=== PATIENT | male | born 1955 | race Caucasian/White ===

== ENCOUNTER 2019-05-31 14:41 | Observation (INO) | payer OTHER, SELFPAY ==
[2019-05-31 14:49] VITALS: BP 132/85; PULSE 112; RESP 16; O2SAT 94; BMI 36.2
--- NOTE | 2019-05-31 14:57 | ED_ITS ---
Entered by Shanthi Naranjo, acting as scribe for Tima White DO May 31, 2019 14:41 HPI - General Adult General: Chief complaint: General Medical Stated complaint: n/v, fall, confusion, lemus Time Seen by Provider: 05/31/19 14:57 Source: patient, family and RN notes reviewed Mode of arrival: ambulatory Limitations: no limitations History of Present Illness: HPI narrative: 63 yo male presents to ED with complaints of nausea, vomiting, coughing, nasal congestion and feeling lightheaded. He states this began 2-3 days ago. He was nauseated at first then t he other symptoms began. He cough has been a little productive. His spouse states the patient has fallen a couple of times and she had to help him get up to walk to a chair. She said the patient has been disoriented and was not speaking clearly. The patient states he is takes insulin and pills for his diabetes. He said within the past 10 years he has had Meniere's disease and has had surgical intervention. He has also had knee and back surgeries. MD complaint: nausea, vomiting, lightheaded, nasal and chest congestion Onset (ago): day(s) (2-3) Location: head and chest Radiation: non-radiation Severity: moderate Quality: aching Pain Consistency: constant Relieving factors: none Associated symptoms: Reports confusion, cough, fevers/chills, nausea, vomiting and weakness Treatments prior to arrival: none Review of Systems General: Reports: 10 or more systems reviewed and unremarkable except in HPI and below GI: Reports: nausea and vomiting Neuro: Reports: confusion PFSH ED PFSH: Social History Smoking and tobacco status: never smoked Physical Exam Const: COMMON NORMALS: no apparent distress, average body habitus, oriented x3, no limitations, healthy appearing, alert and well nourished HENMT: COMMON NORMALS: normocephalic, head/scalp atraumatic, hearing grossly normal bilaterally, external ears normal, EAC's normal, TM's normal bilaterally, external nose normal, nasal mucous membranes and turbinates normal, moist oral mucous membranes, oropharynx normal, dentition normal and gingiva normal HEAD & SCALP: normocephalic and atraumatic NOSE: external nose normal and nasal mucous membranes and turbinates normal EXTERNAL EAR: Yes external ears normal EXTERNAL AUDITORY CANAL: EAC's normal TYMPANIC MEMBRANE: TM's normal bilaterally Neck/C-Spine: COMMON NORMALS: no meningeal signs and no JVD Resp: COMMON NORMALS: normal respiratory effort, no retractions, no use of accessory muscles, clear to auscultation bilaterally and percussion normal AUSCULTATION: clear to auscultation bilaterally PERCUSSION: percussion normal Cardio: COMMON NORMALS: no JVD, regular rhythm, S1 normal heart sound, S2 normal heart sound, no gallops, no clicks, no murmurs, no rub and peripheral pulses 2+ throughout RATE: tachycardic RHYTHM: regular rhythm HEART SOUNDS: S1 normal and S2 normal PERIPHERAL PULSES: pulses 2+ throughout GI: COMMON NORMALS: normal to inspection, nondistended, normoactive bowel sounds, soft to palpation, non-tender, no hepatosplenomegaly, no masses and no bruits PALPATION: Yes soft and Yes no hepatosplenomegaly Neuro: COMMON NORMALS: oriented x3 SENSORIUM/ORIENTATION: Yes alert MENINGEAL SIGNS: Yes no meningeal signs Course Vital Signs: Vital signs: Vital Signs Pulse Rate 112 H 05/31/19 14:49 Respiratory Rate 16 05/31/19 14:49 Blood Pressure 132/85 05/31/19 14:49 Pulse Oximetry 94 05/31/19 14:49 [facility] - General Adult Lab Data: Labs: Lab Results 05/31/19 05/31/19 05/31/19 Range/Units 15:30 15:30 15:30 WBC 12.1 H (4.0-10.0) 10^3/ uL RBC 5.61 H (4.1-5.3) 10^6/u L Hgb 17.1 H (11.7-16.6) g/dL Hct 51.5 (42.0-52.0) % MCV 91.8 (80-94) fL MCH 30.5 (28.0-34.0) pg MCHC 33.2 (30.0-36.0) g/dL RDW 13.6 (12.1-15.1) % Plt Count 231 (130-400) 10^3/c mm MPV 10.2 (7.4-10.4) fL Neut % (Auto) 82.6 % Lymph % (Auto) 8.1 % [place] % (Auto) 8.1 % Eos % (Auto) 0.4 % Baso % (Auto) 0.4 % Neut # (Auto) 10.0 H (1.8-7.7) 10^3/u L Lymph # (Auto) 1.0 (0.8-4.8) 10^3/u L [place]amo # (Auto) 1.0 H (0.2-0.9) 10^3/u L Eos # (Auto) 0.1 (0.0-0.8) 10^3/u L Baso # (Auto) 0.1 (0.0-0.1) 10^3/u L Nucleated RBC % (a uto) 0 % Nucleated RBCs # 0.0 /100WBC Specimen Type Sample Site ABG pH (7.35-7.45) ABG pCO2 (35-45) mmHg ABG pO2 (80.0-100.0) mmH g ABG HCO3 (22-26) mmol/L ABG Base Excess (-2.0-2.0) mmol/ L Kaveh Test Hematocrit (42-52) % O2 Delivery Device FiO2 % Tie Loader ID Sodium 138 (136-145) mmol/L Potassium 3.6 (3.5-5.1) mmol/L Chloride 97 L (98-107) mmol/L Carbon Dioxide 24 (22-29) mmol/L Anion Gap 20.6 H (5-19) BUN 16 (8-23) mg/dL Creatinine 1.4 H (0.7-1.2) mg/dL GFR Calculation 51.0 L (90-130) mL/min Glucose 239 H (65-115) mg/dL Calculated Osmolal ity 290 (285-295) mOsm/k g Lactate 2.2 (0.5-2.2) mmol/L Calcium 9.6 (8.5-10.5) mg/dL Total Bilirubin 1.0 (0.15-1.2) mg/dL AST 23 (0-40) U/L ALT 25 (0-41) U/L Alkaline Phosphata se 73 (40-130) IU/L Total Protein 7.5 (6.6-8.7) g/dL Albumin 4.0 (3.5-5.2) g/dL Globulin 3.5 (1.3-4.6) g/dL Urine Color (Yellow) Urine Appearance (CLEAR) Urine pH (5-7) Ur Specific Gravit y (1.005-1.030) Urine Protein (Negative) Urine Glucose (UA) (Normal) Urine Ketones (Negative) Urine Blood (Negative) Urine Nitrate (Negative) Urine Bilirubin (NEGATIVE) Urine Urobilinogen (Negative) mg/dL Ur Leukocyte Constance ase (Negative) Influenza Type A A g (Negative) POC Influenza B Ag (Negative) 05/31/19 05/31/19 05/31/19 Range/Units 15:38 16:19 16:44 WBC (4.0-10.0) 10^3/ uL RBC (4.1-5.3) 10^6/u L Hgb (11.7-16.6) g/dL Hct (42.0-52.0) % MCV (80-94) fL MCH (28.0-34.0) pg MCHC (30.0-36.0) g/dL RDW (12.1-15.1) % Plt Count (130-400) 10^3/c mm MPV (7.4-10.4) fL Neut % (Auto) % Lymph % (Auto) % [place] % (Auto) % Eos % (Auto) % Baso % (Auto) % Neut # (Auto) (1.8-7.7) 10^3/u L Lymph # (Auto) (0.8-4.8) 10^3/u L [place] # (Auto) (0.2-0.9) 10^3/u L Eos # (Auto) (0.0-0.8) 10^3/u L Baso # (Auto) (0.0-0.1) 10^3/u L Nucleated RBC % (a uto) % Nucleated RBCs # /100WBC Specimen Type Arterial Sample Site Brachial, left ABG pH 7.49 H (7.35-7.45) ABG pCO2 36.3 (35-45) mmHg ABG pO2 58.5 L (80.0-100.0) mmH g ABG HCO3 27.5 H (22-26) mmol/L ABG Base Excess 4.1 H (-2.0-2.0) mmol/ L Kaveh Test N/a Hematocrit 50.1 (42-52) % O2 Delivery Device Room air FiO2 21.0 % Tie Loader ID glc Sodium (136-145) mmol/L Potassium (3.5-5.1) mmol/L Chloride (98-107) mmol/L Carbon Dioxide (22-29) mmol/L Anion Gap (5-19) BUN (8-23) mg/dL Creatinine (0.7-1.2) mg/dL GFR Calculation (90-130) mL/min Glucose (65-115) mg/dL Calculated Osmolal ity (285-295) mOsm/k g Lactate (0.5-2.2) mmol/L Calcium (8.5-10.5) mg/dL Total Bilirubin (0.15-1.2) mg/dL AST (0-40) U/L ALT (0-41) U/L Alkaline Phosphata se (40-130) IU/L Total Protein (6.6-8.7) g/dL Albumin (3.5-5.2) g/dL Globulin (1.3-4.6) g/dL Urine Color Yellow (Yellow) Urine Appearance Clear (CLEAR) Urine pH 5 (5-7) Ur Specific Gravit y 1.015 (1.005-1.030) Urine Protein Neg (Negative) Urine Glucose (UA) 4+ H (Normal) Urine Ketones 1+ H (Negative) Urine Blood Neg (Negative) Urine Nitrate Negative (Negative) Urine Bilirubin Neg (NEGATIVE) Urine Urobilinogen Norm (Negative) mg/dL Ur Leukocyte Constance ase Negative (Negative) Influenza Type A A g Negative (Negative) POC Influenza B Ag Negative (Negative) Imaging Data^: CXR: Radiologist's impression: [address] [address] XRay Report Signed Patient: Anh Rivas #: [id number] : 5Acct#:[id number] Age/Sex: 63 / MADM Date: 05/31/19 Loc: ERRoom/Bed: Attending Dr: Ordering Provider/Ordering MD: Tima White DO Date of Service: 05/31/19 Procedure(s): XR chest 1V portable [id number] Accession Number(s): [id number] Report Number: [id number] WS: [id number] Portable AP upright chest, 05/31/2019 Clinical Data: dyspnea Comparison: None. Findings: No nodules, masses or effusions are seen. The heart is normal. The pulmonary vascularity is not increased. No pneumonia or pneumothorax is seen. XR/XR chest 1V portable [id number] Impression: Negative chest. Dictated By:Missy Gonzalez MD Signed By:Missy Gonzalez MDSigned Date/Time:05/31/19 152 DD/ Discharge Plan Discharge Prescriptions: No Action amitriptyline 50 mg Tablet 50 mg PO BEDTIME RF: 0 Humulin R U-500 (Conc) Insulin 500 unit/mL Solution 100 unit SUBCUT BID RF: 0 alprazolam 0.5 mg Tablet 0.5 mg PO DAILY PRN (Reason: tinnitis) RF: 0 gabapentin 800 mg Tablet 800 mg PO TID RF: 0 metformin 1,000 mg Tablet 1,000 mg PO BID RF: 0 triamterene-hydrochlorothiazid 37.5-25 mg Tablet 1 tab PO DAILY RF: 0 omeprazole 20 mg Capsule,Delayed Release(Dr/Ec) 20 mg PO DAILY RF: 0 lisinopril 2.5 mg Tablet 2.5 mg PO DAILY RF: 0 Farxiga 10 mg Tablet 10 mg PO DAILY RF: 0 Ozempic 1 mg/dose (2 mg/1.5 mL) Pen Injector 1 mg SUBCUT Q7D RF: 0 Coding Level of Care Code ED Sap Bpc Developer for Chg Fwd Exam Detailed The documentation recorded by the Marcella chao Valerie R, accurately reflects the service I personally performed and the decisions made by Cindy wolfe Donald P, DO May 31, 2019 14:41
--- NOTE | 2019-05-31 14:59 | XR_ITS ---
WS: [id number] Portable AP upright chest, 05/31/2019 Clinical Data: dyspnea Comparison: None. Findings: No nodules, masses or effusions are seen. The heart is normal. The pulmonary vascularity is not increased. No pneumonia or pneumothorax is seen. XR/XR chest 1V portable [id number] Impression: Negative chest.
[2019-05-31] MEDS: sodium chloride 0.9% 500 ML IV (15:30)
[2019-05-31 15:44] LABS: Basophils # 0.1 10^3/uL (0.0-0.1); Basophils % 0.4 %; Eosinophils # 0.1 10^3/uL (0.0-0.8); Eosinophils % 0.4 %; Hematocrit 51.5 % (42.0-52.0); Hemoglobin 17.1 g/dL (11.7-16.6); Lymphocytes % 8.1 %; Mean Corpuscular HGB Conc 33.2 g/dL (30.0-36.0); Mean Corpuscular Hemoglobin 30.5 pg (28.0-34.0); Mean Corpuscular Volume 91.8 fL (80-94); Mean Platelet Volume 10.2 fL (7.4-10.4); Monocytes % 8.1 %; Neutrophils % 82.6 %; Nucleated Red Blood Cells % 0 %; Platelet Count 231 10^3/cmm (130-400); Red Blood Count 5.61 10^6/uL (4.1-5.3); Red Cell Distribution Width 13.6 % (12.1-15.1); White Blood Count 12.1 10^3/uL (4.0-10.0)
[2019-05-31 15:56] LABS: Alanine Aminotransferase 25 U/L (0-41); Alkaline Phosphatase 73 IU/L (40-130); Anion Gap 20.6 (5-19); Aspartate Amino Transferase 23 U/L (0-40); Blood Urea Nitrogen 16 mg/dL (8-23); Calcium 9.6 mg/dL (8.5-10.5); Carbon Dioxide 24 mmol/L (22-29); Chloride 97 mmol/L (98-107); Globulin 3.5 g/dL (1.3-4.6); Glucose 239 mg/dL (65-115); Osmolality Calculated 290 mOsm/kg (285-295); Potassium 3.6 mmol/L (3.5-5.1); Sodium 138 mmol/L (136-145); Total Protein 7.5 g/dL (6.6-8.7)
[2019-05-31 15:57] LABS: Lactate (Lactic Acid level) 2.2 mmol/L (0.5-2.2)
[2019-05-31 16:04] LABS: Add Urine Microscopic? NO
[2019-05-31 16:08] LABS: Protein Urine Neg (Negative); Specific Gravity, Urine 1.015 (1.005-1.030); Urine Appearance Clear (CLEAR); Urine Color Yellow (Yellow); pH Urine 5 (5-7)
[2019-05-31 16:09] LABS: Bilirubin Urine Neg (NEGATIVE); Blood Urine Neg (Negative); Glucose Urine UA 4+ (Normal); Ketones Urine 1+ (Negative); Leukocyte Esterase Urine Negative (Negative); Nitrate Urine Negative (Negative); Urobilinogen Urine Norm (Negative)
[2019-05-31 16:51] LABS: Influenza A by IFA Negative (Negative); Influenza B by IFA Negative (Negative)
[2019-05-31 16:54] LABS: ABG PCO2 36.3 mmHg (35-45); ABG PH Result 7.49 (7.35-7.45); Arterial Blood Gas Hematocrit 50.1 % (42-52); Base Excess ABG 4.1 mmol/L (-2.0-2.0); Blood Gas Operator Identificat glc; Blood Gas Sample Site Brachial, left; Blood Gas Sample Type Arterial; HCO3 ABG 27.5 mmol/L (22-26); Oxygen Device ROOM AIR; PO2 ABG 58.5 mmHg (80.0-100.0)
[2019-05-31] MEDS: cefTRIAXone 1,000 MG in sodium chloride 0.9% (plus) 50 ML 100 MG IV (17:47)
[2019-05-31] MEDS: oseltamivir phosphate 75 mg Capsule PO (17:51)
[2019-05-31] MEDS: ondansetron 2 mg/ML SDV 2 mL 4 MG IVP (18:33)
[2019-05-31 18:43] VITALS: BP 124/75; PULSE 112; RESP 16; O2SAT 98
--- NOTE | 2019-05-31 18:55 | CTR_ITS ---
PROCEDURE INFORMATION: Exam: CT Head Without Contrast Exam date and time: 05/31/2019 9:10 PM Age: 63 years old Clinical indication: Pain; Altered mental status/memory loss and dizziness; Headache; Patient HX: Fall yesterday; Additional info: Headache, vertigo TECHNIQUE: Imaging protocol: Computed tomography of the head without contrast. Total DLP: 870.38 mGy-cm Radiation optimization: All CT scans at this facility use at least one of these dose optimization techniques: automated exposure control; mA and/or kV adjustment per patient size (includes targeted exams where dose is matched to clinical indication); or iterative reconstruction. COMPARISON: No relevant prior studies available. FINDINGS: Brain: Normal. No hemorrhage. Unremarkable white matter. No mass effect. Ventricles: Normal. No ventriculomegaly. Bones/joints: Unremarkable. No acute fracture. Sinuses: Visualized sinuses are unremarkable. No fluid levels. Mastoid air cells: Visualized mastoid air cells are well aerated. Soft tissues: Unremarkable. CT/CT head wo con* [id number] IMPRESSION: No acute intracranial abnormality. Radiation Dose CTDIVOL = (mGy): DLP = 870.38 (mGy-cm)
[2019-05-31 19:05] VITALS: BP 128/76; PULSE 100; RESP 18; TEMP 37.2; O2SAT 94
--- NOTE | 2019-05-31 19:05 | PC.NURSE ---
Patient arrived to room 266 from the ER. Patient is A&Ox3. Respirations even and non-labored on room air. Patient states, I am hungry I asked the whole time I was in the ER but they never gave me anything to eat. It was probably because when I first got there I vomited. I feel better now though. Patient's took patient's belongings home with her. Bed alarm place on at this time as patient's went home.
--- NOTE | 2019-05-31 19:31 | P.HP_ITS ---
Providers/Chief Complaint Admitting Physician: Brock Dsouza Primary Care Provider: Ghanshyam Suarez DO Chief Complaint: n/v, fall, confusion, lemus History of Present Illness Byron Rivas is a 63 year old male with history of meniere's disease with history of severe vertigo diagnosed 10 years ago which improved with medical therapy, although recently over past several weeks has been getting more frequent episodes (his is under the impression that his low dose lisinopril is the treatment for it and not for blood pressure), diabetes, GERD, neuropathy for which he takes amitriptyline, gabapentin, he also takes intermittent ibuprofen, was brought in for evaluation by his family as he got significantly worse in the last several days, with more episodes of vertigo, with nausea, vomiting, but also cough, nonproductive, nasal congestion, mild headache today, as well as this morning he has had more difficulty ambulating, falling over 3 times at home. This morning also his noted that he had an episode where he was not making sense when he was trying to speak with her, saying bring it over for me and spit it out , and she was not sure what he was talking about without any relation to the context. Today he is also noted with fever reported as 100.8 in ER, although I do not see it recorded. Here he is found with flushed appearance, leukocytosis 12.1, tachycardia heart rate 112, nausea, currently without vertigo, mild headache, no photosensitivity or neck stiffness, with general malaise. Rapid flu was checked and was negative. Chest x-ray was assessed without finding of pneumonia. UA unremarkable. He does have acute kidney injury with creatinine of 1.4. He has continuously been taking all his medications at the same dose. His lactic acid is 2.2. Anion gap is 20.6 but with normal, carbon dioxide of 24. +1 ketones in the urine, but no acidosis on ABG. Hypoxemia 58.5, although he is saturating 97% on room air. There are no signs of confusion currently. He is awake and alert, keenly responsive, and provides his own history, although is hard of hearing, especially in the left ear. He has an episode of vomiting during the visit, however, denies abdominal pain, and had a normal bowel movement earlier today. He and his family also noticed occasional jerking movements of his arms and sometimes head. He reports that he has been having some trouble using a spoon due to this. This is not currently present. He denies any earache, denies any tinnitus. He denies any numbness or weakness anywhere else. Denies any past history of stroke. He denies any recent travel or sick contacts. He has not had a flu vaccine this year. Review of Systems Const: Reports: fever and malaise Eyes: Denies: change in vision or eye redness ENMT: Reports: disequilibrium and nasal congestion; Denies: throat pain, oral sores/lesions, ear pain, ear discharge, change in hearing or tinnitus Card: Denies: chest pain, edema, pre-syncope or shortness of breath on exertion Resp: Reports: non-productive cough; Denies: shortness of breath, productive cough, change in phlegm color or c oughing up blood GI: Reports: nausea and vomiting; Denies: abdominal pain, diarrhea, constipation, blood in stool or black tarry stool : Denies: flank pain, difficulty urinating, urinary frequency or blood in urine Musc: Denies: back pain, joint swelling or redness Skin/Breast: Denies: rash, sores or new lesion Neuro: Reports: headache, dizziness and confusion (temporary this morning); Denies: numbness in extremities, weakness in extremities or seizure-like activity Endo: Denies: excessive urination or excessive thirst Franko/Lymph: Denies: easy bleeding or purpura All/Imm: Denies: hives, throat swelling or tongue swelling Medications/Allergies Home Medications Medication Instructions Recorded Confirmed Last Taken Type alprazolam 0.5 mg PO DAILY PRN 05/31/19 05/31/19 05/31/19 History amitriptyline 50 mg PO BEDTIME 05/31/19 05/31/19 05/30/19 History dapagliflozin [Farxiga] 10 mg PO DAILY 05/31/19 05/31/19 05/31/19 History gabapentin 800 mg PO TID 05/31/19 05/31/19 05/31/19 History insulin regular hum U-500 conc 100 unit SUBCUT BID 05/31/19 05/31/19 05/31/19 History [Humulin R U-500 (Conc) Insulin] lisinopril 2.5 mg PO DAILY 05/31/19 05/31/19 05/31/19 History metformin 1,000 mg PO BID 05/31/19 05/31/19 05/31/19 History omeprazole 20 mg PO DAILY 05/31/19 05/31/19 05/31/19 History semaglutide [Ozempic] 1 mg SUBCUT Q7D 05/31/19 05/31/19 05/28/19 History triamterene-hydrochlorothiazid 1 tab PO DAILY 05/31/19 05/31/19 05/31/19 History Allergies Allergy/AdvReac Type Severity Reaction Status Date / Time No Known Allergies Allergy Verified 05/31/19 14:55 PFSH Acute PFSH: Medical History (Updated 05/31/19 @ 20:52 by Brock Dsouza MD) DM type 2 (diabetes mellitus, type 2) GERD (gastroesophageal reflux disease) Meniere disease Neuropathic pain Surgical History H/O elbow surgery H/O knee surgery H/O wrist surgery Hx of cataract surgery Previous back surgery Family History Father Colon cancer Mother Colon cancer Other Cancer Social History Smoking and tobacco status: never smoked Alcohol intake: never Substance/Drug Use: never Marital status: Current 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 Vitals/I&O/Wt Last Vital Signs Pulse 112 H 05/31/19 18:43 Resp 16 05/31/19 18:43 BP 124/75 05/31/19 18:43 Pulse Ox 98 05/31/19 18:43 Weight last 48 hrs Weight 117.934 kg Physical Exam Const: COMMON NORMALS: no apparent distress and oriented x3 EXAM LIMITATIONS: no altered mental status GENERAL APPEARANCE: cooperative OTHER: Face flushed HENMT: COMMON NORMALS: oropharynx normal EXTERNAL AUDITORY CANAL: EAC's normal TYMPANIC MEMBRANE: TM's normal bilaterally Eye: OTHER: Mild scleral erythema bilaterally Neck/C-Spine: COMMON NORMALS: no JVD OTHER: No neck stiffness Resp: COMMON NORMALS: normal respiratory effort and clear to auscultation bilaterally AUSCULTATION: clear to auscultation bilaterally Cardio: COMMON NORMALS: no JVD, regular rhythm, S1 normal heart sound, S2 normal heart sound and no murmurs RATE: tachycardic RHYTHM: regular rhythm HEART SOUNDS: S1 normal and S2 normal GI: COMMON NORMALS: normal to inspection, nondistended, normoactive bowel sounds, soft to palpation and non-tender PALPATION: Yes soft Extremity: COMMON NORMALS: no joint enlargement and no pedal edema Neuro: COMMON NORMALS: oriented x3 and moves all extremities MENINGEAL SIGNS: Yes no meningeal signs COORDINATION/BALANCE: kzyptc-yp-yuma test normal SPEECH: speech normal GAIT: Yes unable to assess gait MOTOR EXAM: strength 5/5 throughout COMATOSE PATIENT: corneal reflex present OTH ER: Visual avila full to confrontation. No dysarthria. Sensation is symme trical. No pronator drift. Very mild nystagmus that appears to reverse direction with gaze. Normal head impulse test. Skin: COMMON NORMALS: no rashes or lesions noted GENERAL SKIN EXAM: no rashes or lesions noted Data : 05/31/19 15:30 05/31/19 15:30 Micro: Microbiology 05/31/19 15:35 Blood Culture - Preliminary Blood SPECIMEN COLLECTED 05/31/19 15:30 Blood Culture - Preliminary Blood SPECIMEN COLLECTED A&P Assessment and plan (1) Acute viral syndrome: With fever, congestion, dry cough. No pneumonia noted on x-ray. In ER received 1 dose of Rocephin for possible bronchitis. Influenza negative, however, empirically treating given suspicion of acute viral infection. His vertigo etiology is somewhat less clear. With severe vertigo about 10 years ago which had improved subsequently with M?ni?re's disease treatment, but recently within the last several weeks has been having more episodes. Today and yesterday very frequent, and today unable to walk with 3 falls at home. Ear examination is unremarkable. He has no tinnitus, no change in hearing from his baseline (chronic hard of hearing, with particular deafness in the left e ar). Episode of confusion this morning making a nonsensical statement possibly related. At the same time head impulse test is normal. Nystagmus appears to reverse direction. At this time will monitor. Will not continue Rocephin. With his other symptoms suspicion for vestibular neuronitis at this time is low in the differential. His confusion has resolved, he has mild headache, otherwise no meningeal symptoms. For now no lumbar puncture, but will monitor for any changes in his condition. His leukocytosis and tachycardia suspected again secondary to viral infection. No suggestion of pneumonia on x-ray, no suggestion of UTI. He has episode of nausea, vomiting, however, no abdominal pain, abdominal exam is benign. He had normal bowel movement earlier today. Intra-abdominal infection at this time is not suspected. Lactic acid is 2.2. Liver parameters are all normal. We will check procalcitonin. He is noted hypoxemic on ABG, PO2 58.5. With dry cough. Perhaps secondary to viral bronchitis. We will add breathing treatments. Per discussion with RT carbon monoxide was 1.3%. Maintain droplet isolation. Status: Acute Code(s): B34.9 - Viral infection, unspecified (2) Vertigo: Difficult to distinguish etiology. Also vertigo is much worse in the last few days, however, has been worsening over the last several weeks. He denies any ear pain. Normal ear exam. No tinnitus. He continues taking medical treatment for M?ni?re. He is currently on triamterene-HCTZ, although his also says he takes lisinopril for that as well and not for blood pressure. Perhaps his malaise and general condition is making this vertigo worse, although at the same time as mentioned above head impulse test was normal and nystagmus appears to reverse direction, making it concerning whether or not there may be central etiology. Mild headache. At this time we will check head CT, start him on aspirin, statin. Hold lisinopril. Monitor on telemetry. Once he is feeling better would benefit from assessment by MRI. Alternatively he also presents with acute kidney injury, likely NSAID induced, and has continued taking all his medications including amitriptyline and gabapentin without any change in dosing. It is possible that there are some symptoms of toxicity, including as he reported some jerking movements, and possibly making his vertigo worse. At this time will decrease doses of medication. After discharge should resume follow-up with ENT for M?ni?re's disease. Status: Acute Code(s): R42 - Dizziness and giddiness (3) Falls: Suspected secondary to vertigo and acute viral illness. At this time supportive treatment. Meclizine, Zofran as needed. PT assessment. Fall precautions. Status: Acute Code(s): W19.XXXA - Unspecified fall, initial encounter (4) ANDI (acute kidney injury): Creatinine 1.4 with normal baseline. Possibly NSAID induced as he is takes ibuprofen intermittently, and has taken some in the last few days, also perhaps some contribution from lisinopril, as well as perhaps dehydration secondary to vomiting, poor appetite. Discussed with patient and family. Discontinue NSAIDs. Hold lisinopril at this time. He is receiving IV fluid challenge. Monitor renal function. Decrease doses of his neuropathy medications. Status: Acute Code(s): N17.9 - Acute kidney failure, unspecified Additional A&P Information Jerking movements: Reported having a trouble with this recently, including when using a spoon. It is not a constant tremor. Not a clear reason, however, I suspect may be related to his medications including amitriptyline, gabapentin in the setting of acute kidney injury. At this time will decrease doses of the medications. Monitor renal function. Leukocytosis: May be secondary to hemoconcentration, with elevated hemoglobin as well, perhaps after vomiting with dehydration. Diabetes: At home on regular insulin. Will switch to Lantus. For now on liquid diet due to vomiting. Consistent carbohydrate. Sliding scale insulin. Ketones in the urine suspect secondary to poor oral intake. ABG without acidemia. Not suspecting DKA at this time. M?ni?re disease Neuropathic pain GERD Attestations Medical Necessity Statement*: Place in observation. Coding Level of Care Code Acute Supervising Editor Trailer for Matthew Jovel Diagnoses Acute viral syndrome B34.9 Vertigo R42 Falls W19.XXXA ANDI (acute kidney injury) N17.9
[2019-05-31 19:50] VITALS: BP 130/75; PULSE 109; RESP 20; TEMP 37.1; O2SAT 94
[2019-05-31 19:57] VITALS: PULSE 103; RESP 20; O2SAT 97
[2019-05-31] MEDS: ipratropium-albuterol 3 mL Neb INHALATION (19:57)
[2019-05-31 20:01] VITALS: PULSE 103
[2019-05-31 20:54] LABS: Procalcitonin 0.18 ng/mL (0-0.5)
--- NOTE | 2019-05-31 21:15 | PC.NURSE ---
Patient down to CT by wheel chair and this nurse at this time. Patient is A&Ox3. Respirations even and non-labored on room air.
--- NOTE | 2019-05-31 21:25 | PC.NURSE ---
Patient is A&Ox3. Respirations even and non-labored on room air. Patient assisted back to bed from wheel chair. No need voiced.
[2019-05-31] MEDS: sodium chloride 0.9% 1,000 ML 200 ML IV (21:31)
[2019-05-31] MEDS: aspirin 325 mg Tablet PO (21:34)
[2019-05-31] MEDS: gabapentin 300 mg Capsule PO (21:35)
[2019-05-31] MEDS: heparin 5,000 unit/mL INJ 1 mL 5000 UNIT SUBCUT (21:39)
[2019-05-31 22:23] LABS: Glucose Point of Care 267 mg/dL (70-110)
[2019-06-01] VITALS (11 sets, daily range): BP systolic 109–132; BP diastolic 70–74; PULSE 76–90; RESP 16–32; TEMP 36.9–37.8; O2SAT 93–97
[2019-06-01] MEDS: insulin glargine 100 units/1 mL 40 UNIT SUBCUT (00:19)
[2019-06-01] MEDS: acetaminophen 325 mg Tablet 650 MG PO ×2 (01:47→12:22)
[2019-06-01] MEDS: sodium chloride 0.9% 1,000 ML 200 ML IV ×2 (02:42→09:10)
[2019-06-01] MEDS: heparin 5,000 unit/mL INJ 1 mL 5000 UNIT SUBCUT ×2 (06:15→12:22)
[2019-06-01 06:27] LABS: Basophils % 0.4 %; Eosinophils % 0.1 %; Hematocrit 46.4 % (42.0-52.0); Hemoglobin 15.3 g/dL (11.7-16.6); Lymphocytes # 1.6 10^3/uL (0.8-4.8); Lymphocytes % 15.6 %; Mean Corpuscular Hemoglobin 30.5 pg (28.0-34.0); Mean Corpuscular Volume 92.6 fL (80-94); Mean Platelet Volume 10.3 fL (7.4-10.4); Monocytes # 0.9 10^3/uL (0.2-0.9); Monocytes % 8.5 %; Neutrophils # 7.6 10^3/uL (1.8-7.7); Neutrophils % 75.1 %; Nucleated Red Blood Cells % 0 %; Platelet Count 202 10^3/cmm (130-400); Red Blood Count 5.01 10^6/uL (4.1-5.3); Red Cell Distribution Width 13.8 % (12.1-15.1); White Blood Count 10.2 10^3/uL (4.0-10.0)
--- NOTE | 2019-06-01 06:30 | PC.NURSE ---
Patient states, Dr. Rivers said he was going to skip the first test because my EJ was only 15 percent. Enrike in [facility] notified.
[2019-06-01 06:42] LABS: Alanine Aminotransferase 22 U/L (0-41); Albumin Level 3.9 g/dL (3.5-5.2); Alkaline Phosphatase 66 IU/L (40-130); Anion Gap 17.3 (5-19); Aspartate Amino Transferase 22 U/L (0-40); Blood Urea Nitrogen 21 mg/dL (8-23); Calcium 9.3 mg/dL (8.5-10.5); Carbon Dioxide 26 mmol/L (22-29); Chloride 98 mmol/L (98-107); Globulin 3.2 g/dL (1.3-4.6); Glucose 208 mg/dL (65-115); Osmolality Calculated 289 mOsm/kg (285-295); Potassium 3.3 mmol/L (3.5-5.1); Sodium 138 mmol/L (136-145); Total Bilirubin 0.8 mg/dL (0.15-1.2); Total Protein 7.1 g/dL (6.6-8.7)
[2019-06-01 07:32] LABS: Glucose Point of Care 174 mg/dL (70-110)
[2019-06-01] MEDS: ipratropium-albuterol 3 mL Neb INHALATION ×3 (07:55→15:50)
[2019-06-01] MEDS: gabapentin 300 mg Capsule PO ×2 (09:12→15:18)
[2019-06-01] MEDS: aspirin 325 mg Tablet PO (09:12)
[2019-06-01] MEDS: pantoprazole DR 40 mg Tablet PO (09:12)
[2019-06-01] MEDS: oseltamivir phosphate 75 mg Capsule PO (09:12)
--- NOTE | 2019-06-01 10:15 | MR_ITS ---
WS: [id number] MRI HEAD WITH CONTRAST TECHNIQUE: Sagittal T1, T2 axial, T2 axial FLAIR, axial susceptibility weighted imaging, axial diffus ion weighted images, and coronal T2 images were obtained. Pre and post-T1 axial and post T1 coronal i mages. ADC and FSPGR images. CLINICAL INFORMATION: vertigo COMPARISON: CT May 31, 2019 FINDINGS: No evidence of restricted diffusion to suggest acute ischemia. Ventricular system and basal cisterns are patent. Mild small vessel changes. Moderate parenchymal volume loss. Normal posterior fossa. Norm al vascular flow voids at the skull base. No extra-axial fluid collections. No evidence of mass or ma ss effect. Normal brain stem. Mild mucosal thickening in the paranasal sinuses. Mastoid air cells are well aerated. Mild mucosal thickening right mastoid air cells. Mild symmetric atrophy involving the temporal lobes and hippocampal formations. Normal optic chiasm. No abnormal gadolinium enhancement. Normal optic chiasm and pituitary infundibulum. Normal visualized dural venous sinuses. MR/MR head wo/w con [id number] IMPRESSION: 1. No evidence of restricted diffusion to suggest acute ischemia. 2. Mild small vessel changes with moderate parenchymal volume loss. 3. No abnormal gadolinium enhancement. 4. Mild symmetric atrophy involving the temporal lobes and hippocampal formati ons.
[2019-06-01 12:16] LABS: Glucose Point of Care 175 mg/dL (70-110)
[2019-06-01 13:33] LABS: Glucose Point of Care 170 mg/dL (70-110)
[2019-06-01 16:32] LABS: Glucose Point of Care 175 mg/dL (70-110)
--- NOTE | 2019-06-01 17:59 | PM.DCS ---
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 With noted occasional jerking movements in his hands, sometimes using a spoon progressing over the last several weeks. Noted with mild leukocytosis, tachycardia, fever on presentation. Flu swab was negative, however, would not consider it reliable. He was noted to have acute kidney injury with creatinine 1.4, but continues to take his medications without changing any doses. With vomiting, poor appetite. Also with dry cough and bronchitis. Received a dose of Rocephin in ER. This was not continued as bronchitis suspected viral. Procalcitonin is normal at 0.18. 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 He was initiated on aspirin and statin in case vertigo was related to central cause as his exam was equivocal with normal head thrust maneuver, with symptoms not consistent with vestibular neuronitis follow-up MRI was arranged but did not reveal any focus of CVA. We will continue on statin per ASCVD recommendations. His medication doses for amitriptyline and gabapentin were decreased due to concern for toxicity with worsening vertigo, as well as reported jerking movements, confusion. I suspect this was most likely the cause, in combination with his acute viral illness and meniere's disease, of his presenting complaints. He received IV hydration. He did very well overnight, with resolution of fever, improvement in leukocytosis, resolution of tachycardia. He is feeling much better today. He has remained lucid, awake and alert. Today he worked with physical therapy and did well, with recommendation for home exercise program which were provided for him. He is having no further symptoms, having no vertigo, and is feeling ready to return home. He was counseled on discontinuing NSAIDs, and for now his lisinopril will be held. He is encouraged to follow-up with ENT regarding chronic management of M?ni?re's disease which possibly may be worsening. Supportive management recommended and discussed with him and his family for bronchitis. Lisinopril held temporarily due to acute kidney injury. Please follow-up renal function, resume and adjust medications as appropriate. Physical Exam Const: COMMON NORMALS: no apparent distress and oriented x3 EXAM LIMITATIONS: no altered mental status GENERAL APPEARANCE: cooperative OTHER: He is lucid, conversant. Surrounded by family. Hard of HENMT: COMMON NORMALS: oropharynx normal Eye: OTHER: Mild scleral erythema bilaterally Neck/C-Spine: COMMON NORMALS: no meningeal signs and no JVD OTHER: No neck stiffness Resp: COMMON NORMALS: normal respiratory effort and clear to auscultation bilaterally AUSCULTATION: clear to auscultation bilaterally Cardio: COMMON NORMALS: no JVD, regular rhythm, S1 normal heart sound, S2 normal heart sound and no murmurs RATE: tachycardic RHYTHM: regular rhythm HEART SOUNDS: S1 normal and S2 normal GI: COMMON NORMALS: normal to inspection, nondistended, normoactive bowel sounds, soft to palpation and non-tender PALPATION: Yes soft Extremity: COMMON NORMALS: no joint enlargement and no pedal edema Neuro: COMMON NORMALS: oriented x3 and moves all extremities MENINGEAL SIGNS: Yes no meningeal signs COORDINATION/BALANCE: [id number] test normal SPEECH: speech normal GAIT: Yes unable to assess gait MOTOR EXAM: strength 5/5 throughout COORDINATION: [id number] test normal COMATOSE PATIENT: corneal reflex present OTHER: Visual avila full to confrontation. No dysarthria. Sensation is symmetrical. No pronator drift. Skin: COMMON NORMALS: no rashes or lesions noted GENERAL SKIN EXAM: no rashes or lesions noted Discharge Data Data Completed and Pending: Completed Studies During Hospitalization Category Date Time Status CT head wo con* [id number] Stat Cat Scan 05/31/19 18:55 Completed XR chest 1V anahy ble [id number] Urgent Exams 05/31/19 14:59 Completed MR head wo/w con [id number] Routine MRI 06/01/19 10:15 Completed Pending at discharge Category Date Time Status Blood Culture Sta t Lab 05/31/19 15:35 Results Complete Blood Co unt w/Auto AM LABS Lab 06/02/19 04:00 Ordered Complete Blood Co unt w/Auto AM LABS Lab 06/03/19 04:00 Ordered Comprehensive Met abolic Panel AM LA BS Lab 06/02/19 04:00 Ordered Comprehensive Met abolic Panel AM LA BS Lab 06/03/19 04:00 Ordered Labs from last 24 hours 06/01/19 06/01/19 06/01/19 16:01 13:29 12:13 WBC RBC Hgb Hct MCV MCH MCHC RDW Plt Count MPV Neut % (Auto) Lymph % (Auto) [place] % (Auto) Eos % (Auto) Baso % (Auto) Neut # (Auto) Lymph # (Auto) [place] # (Auto) Eos # (Auto) Baso # (Auto) Nucleated RBC % (a uto) Nucleated RBCs # Sodium Potassium Chloride Carbon Dioxide Anion Gap BUN Creatinine GFR Calculation Glucose POC Glucose 175 170 175 Calculated Osmolal ity Calcium Total Bilirubin AST ALT Alkaline Phosphata se Total Protein Albumin Globulin Procalcitonin 06/01/19 06/01/19 06/01/19 06:27 04:47 04:47 WBC 10.2 H RBC 5.01 Hgb 15.3 Hct 46.4 MCV 92.6 MCH 30.5 MCHC 33.0 RDW 13.8 Plt Count 202 MPV 10.3 Neut % (Auto) 75.1 Lymph % (Auto) 15.6 [place] % (Auto) 8.5 Eos % (Auto) 0.1 Baso % (Auto) 0.4 Neut # (Auto) 7.6 Lymph # (Auto) 1.6 [place] # (Auto) 0.9 Eos # (Auto) 0.0 Baso # (Auto) 0.0 Nucleated RBC % (a uto) 0 Nucleated RBCs # 0.0 Sodium 138 Potassium 3.3 L Chloride 98 Carbon Dioxide 26 Anion Gap 17.3 BUN 21 Creatinine 1.2 GFR Calculation 61.0 L Glucose 208 H POC Glucose 174 Calculated Osmolal ity 289 Calcium 9.3 Total Bilirubin 0.8 AST 22 ALT 22 Alkaline Phosphata se 66 Total Protein 7.1 Albumin 3.9 Globulin 3.2 Procalcitonin 05/31/19 05/31/19 22:19 15:30 WBC RBC Hgb Hct MCV MCH MCHC RDW Plt Count MPV Neut % (Auto) Lymph % (Auto) [place] % (Auto) Eos % (Auto) Baso % (Auto) Neut # (Auto) Lymph # (Auto) [place] # (Auto) Eos # (Auto) Baso # (Auto) Nucleated RBC % (a uto) Nucleated RBCs # Sodium Potassium Chloride Carbon Dioxide Anion Gap BUN Creatinine GFR Calculation Glucose POC Glucose 267 Calculated Osmolal ity Calcium Total Bilirubin AST ALT Alkaline Phosphata se Total Protein Albumin Globulin Procalcitonin 0.18 Vitals: Last Vital Signs Temp 98.7 F 06/01/19 15:27 Pulse 79 06/01/19 15:55 Resp 18 06/01/19 15:55 BP 109/72 06/01/19 15:27 Pulse Ox 95 06/01/19 15:55 Discharge Plan Discharge Patient Disposition: Home, Self-Care Condition: Stable Prescriptions: New atorvastatin 40 mg Tablet 40 mg PO BEDTIME Qty: 30 RF: 0 amitriptyline 10 mg Tablet 10 mg PO BEDTIME Qty: 30 RF: 0 meclizine 25 mg Tablet 25 mg PO TID PRN (Reason: Dizziness) Qty: 30 RF: 0 oseltamivir 75 mg Capsule 75 mg PO BID Qty: 8 RF: 0 gabapentin 300 mg Capsule 300 mg PO TID Qty: 90 RF: 0 aspirin [Aspir-81] 81 mg tablet,delayed release (DR/EC) 81 mg PO DAILY Qty: 30 RF: 0 Continued Humulin R U-500 (Conc) Insulin 500 unit/mL Solution 100 unit SUBCUT BID RF: 0 alprazolam 0.5 mg Tablet 0.5 mg PO DAILY PRN (Reason: tinnitis) RF: 0 triamterene-hydrochlorothiazid 37.5-25 mg Tablet 1 tab PO DAILY RF: 0 omeprazole 20 mg Capsule,Delayed Release(Dr/Ec) 20 mg PO DAILY RF: 0 Farxiga 10 mg Tablet 10 mg PO DAILY RF: 0 Ozempic 1 mg/dose (2 mg/1.5 mL) Pen Injector 1 mg SUBCUT Q7D RF: 0 Held metformin 1,000 mg Tablet 1,000 mg PO BID RF: 0 Hold Instructions: Resume on 06/08/19. lisinopril 2.5 mg Tablet 2.5 mg PO DAILY RF: 0 Hold Instructions: Resume on 06/08/19. Discontinued amitriptyline 50 mg Tablet 50 mg PO BEDTIME RF: 0 gabapentin 800 mg Tablet 800 mg PO TID RF: 0 Discharge Orders: Discharge Order (Routine); Ordered 06/01/19 Ordered By: Brock Dsouza Referrals: Mulugeta Suazo MD [Physician] - 2 weeks (Please call in the morning to make follow up appointment for Meniere's disease) Ghanshyam Suarez DO [Primary Care Provider] - 4-7 days (Please call in the morning to set up a follow up appointment.) Discharge Diet: Advance as tolerated Discharge Activity: Limit activity as instructed Patient Instructions: Amitriptyline (By mouth), Meclizine (By mouth), Gabapentin (By mouth), Atorvastatin (By mouth), Oseltamivir (By mouth) Activity Restrictions/Additional Instructions: Maintain fall precautions at all times. 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 Be aware that you may lose her balance at any time. Please discuss with your primary care doctor to follow-up your kidney function. Please avoid any NSAIDs like ibuprofen, Aleve, etc. Use moist heat for bronchitis, [id number] nasal sprays for nasal congestion. Tylenol as needed for fever. If fever is high, persistent, you develop confusion, severe headache, or other abnormal symptoms, seek medical attention without delay. Discharge Attestations Time Spent in Discharge Care*: greater than 30 min Quality Metrics Clinical Quality Measures During this hospital stay, did patient experience: None Coding Level of Care Code Acute [employer]ipe [employer] for Matthew Fwd Diagnoses Acute viral syndrome B34.9 Vertigo R42 Falls W19.XXXA ANDI (acute kidney injury) N17.9
== END 2019-06-01 18:45 | disposition home or self-care (01) ==
LOC: ER 15:35 → MEDSURG 18:21
PROVIDERS: Admitting Provider Internal Medicine; Emergency Provider Family Medicine; Family Provider Family Medicine; PCP Family Medicine; Visit Provider Internal Medicine
DX: B34.9 Viral infection, unspecified (principal); Z91.81 History of falling; N17.9 Acute kidney failure, unspecified; E11.9 Type 2 diabetes mellitus without complications; H81.09 Meniere's disease, unspecified ear
CPT/HCPCS: 12345; 36415; 36416; 36600; 70450; 70553; 71045; 80053; 81003; 82803; 82962; 83605; 84145; 85025; 87040; 87804; 94640; 96360; 96361; 96365; 96367; 96372; 96375; 96376; 97110; 97161; 99282; 99285; A9579; G0378; J0131; J0696; J1644; J1815; J2405; J7030; J7040

== ENCOUNTER → 2019-06-06 13:57 | Outpatient (BNVA) | payer OTHER, SELFPAY | PROVIDERS: Family Provider Family Medicine; PCP Family Medicine; Visit Provider Family Medicine | DX: R51 Headache (principal); J18.9 Pneumonia, unspecified organism | CPT/HCPCS: 85025; 87400 ==

== ENCOUNTER → 2019-11-23 11:08 | Outpatient (BNVA) | payer MEDICARE, SELFPAY | PROVIDERS: Family Provider Family Medicine; PCP Family Medicine; Visit Provider Family Medicine | DX: J11.1 Influenza due to unidentified influenza virus with other respiratory manifestations (principal); J32.9 Chronic sinusitis, unspecified; B34.9 Viral infection, unspecified | CPT/HCPCS: 87400; 87635 ==

== ENCOUNTER → 2019-12-12 10:47 | Outpatient (BNVA) | payer MEDICARE, SELFPAY | PROVIDERS: Family Provider Family Medicine; PCP Family Medicine; Visit Provider Family Medicine | DX: U07.1 COVID-19 (principal); J11.1 Influenza due to unidentified influenza virus with other respiratory manifestations | CPT/HCPCS: 71046 ==

== ENCOUNTER 2019-12-12 11:30 | Outpatient (CLI) | payer MEDICARE, SELFPAY | END 2019-12-12 11:31 | disposition home or self-care (01) | LOC: LAB 10-23 05:37 | PROVIDERS: PCP Family Medicine; Visit Provider Family Medicine | DX: U07.1 COVID-19 (principal); J11.1 Influenza due to unidentified influenza virus with other respiratory manifestations; J18.9 Pneumonia, unspecified organism | CPT/HCPCS: 85025 ==

== ENCOUNTER → 2020-01-26 09:00 | Outpatient (BNVA) | payer MEDICARE, SELFPAY | PROVIDERS: Family Provider Family Medicine; PCP Family Medicine; Visit Provider Family Medicine | DX: R59.9 Enlarged lymph nodes, unspecified (principal) | CPT/HCPCS: 71046 ==

== ENCOUNTER → 2020-09-27 13:26 | Outpatient (BNVA) | payer MEDICARE, SELFPAY | PROVIDERS: Family Provider Family Medicine; PCP Family Medicine; Visit Provider Family Medicine | DX: R07.9 Chest pain, unspecified (principal); M79.89 Other specified soft tissue disorders | CPT/HCPCS: 80053; 80061; 85025 ==

== ENCOUNTER → 2020-11-01 09:06 | Outpatient (BNVA) | payer MEDICARE, SELFPAY | PROVIDERS: Family Provider Family Medicine; PCP Family Medicine; Visit Provider Family Medicine | DX: R74.8 Abnormal levels of other serum enzymes (principal) | CPT/HCPCS: 80053 ==

== ENCOUNTER → 2021-07-25 16:02 | Outpatient (BNVA) | payer MEDICARE, SELFPAY | PROVIDERS: Family Provider Family Medicine; PCP Family Medicine; Visit Provider Family Medicine | DX: M54.50 Low back pain, unspecified (principal) | CPT/HCPCS: 72100 ==

== ENCOUNTER → 2022-02-06 15:53 | Outpatient (BNVA) | payer MEDICARE, SELFPAY | PROVIDERS: Family Provider Family Medicine; PCP Family Medicine | DX: R74.01 Elevation of levels of liver transaminase levels (principal) | CPT/HCPCS: 80053 ==

== ENCOUNTER 2022-08-21 06:00 | Outpatient (RCR) | payer MEDICARE, SELFPAY | END 2022-09-19 23:59 | disposition home or self-care (01) | LOC: GPT 06:00 | PROVIDERS: PCP Family Medicine; Visit Provider Nurse Practitioner Adult Health | DX: Z96.611 Presence of right artificial shoulder joint (principal) | CPT/HCPCS: 97110; 97112; 97140; 97161; 97530 ==

== ENCOUNTER 2022-09-20 06:00 | Outpatient (RCR) | payer MEDICARE, SELFPAY | END 2022-10-20 23:59 | disposition home or self-care (01) | LOC: GPT 06:00 | PROVIDERS: PCP Family Medicine; Visit Provider Nurse Practitioner Adult Health | DX: Z96.611 Presence of right artificial shoulder joint (principal) | CPT/HCPCS: 97110; 97112; 97140; 97164; 97530 ==

== ENCOUNTER 2022-10-21 06:00 | Outpatient (RCR) | payer MEDICARE, SELFPAY | END 2022-11-20 23:59 | disposition home or self-care (01) | LOC: GPT 06:00 | PROVIDERS: PCP Family Medicine; Visit Provider Nurse Practitioner Adult Health | DX: Z47.1 Aftercare following joint replacement surgery (principal); Z96.611 Presence of right artificial shoulder joint | CPT/HCPCS: 97110; 97140; 97164; 97530 ==

== ENCOUNTER 2022-11-21 06:00 | Outpatient (RCR) | payer MEDICARE, SELFPAY | END 2022-12-20 23:59 | disposition home or self-care (01) | LOC: GPT 06:00 | PROVIDERS: PCP Family Medicine; Visit Provider Nurse Practitioner Adult Health | DX: Z47.1 Aftercare following joint replacement surgery (principal); Z96.611 Presence of right artificial shoulder joint | CPT/HCPCS: 97110; 97112 ==

== ENCOUNTER 2022-11-28 09:22 | Outpatient (RCR) | payer MEDICARE, SELFPAY | END 2022-12-20 23:59 | disposition home or self-care (01) | LOC: GPT 09:22 | PROVIDERS: PCP Family Medicine; Visit Provider Family Medicine | DX: M54.59 Other low back pain (principal); R26.2 Difficulty in walking, not elsewhere classified; M54.17 Radiculopathy, lumbosacral region | CPT/HCPCS: 97110; 97112; 97140; 97162; 97530 ==

== ENCOUNTER 2022-12-21 06:00 | Outpatient (RCR) | payer MEDICARE, SELFPAY | END 2023-01-20 23:59 | disposition home or self-care (01) | LOC: GPT 06:00 | PROVIDERS: PCP Family Medicine; Visit Provider Family Medicine | DX: M54.17 Radiculopathy, lumbosacral region (principal); R26.2 Difficulty in walking, not elsewhere classified | CPT/HCPCS: 97110; 97112; 97140 ==

== ENCOUNTER 2023-01-21 06:00 | Outpatient (RCR) | payer MEDICARE, SELFPAY | END 2023-02-19 23:59 | disposition home or self-care (01) | LOC: GPT 06:00 | PROVIDERS: PCP Family Medicine; Visit Provider Family Medicine | DX: M54.59 Other low back pain (principal); M54.17 Radiculopathy, lumbosacral region; R26.2 Difficulty in walking, not elsewhere classified | CPT/HCPCS: 97110; 97112; 97140; 97164 ==

== ENCOUNTER 2023-02-20 06:00 | Outpatient (RCR) | payer MEDICARE, SELFPAY | END 2023-03-13 23:59 | disposition home or self-care (01) | LOC: GPT 06:00 | PROVIDERS: PCP Family Medicine; Visit Provider Family Medicine | DX: M54.59 Other low back pain (principal); M54.17 Radiculopathy, lumbosacral region; R26.2 Difficulty in walking, not elsewhere classified | CPT/HCPCS: 97110; 97530 ==

== ENCOUNTER → 2024-08-01 14:41 | Outpatient (BNVA) | payer MEDICARE, SELFPAY | PROVIDERS: PCP Family Medicine; Visit Provider Nurse Practitioner Family | DX: Z12.5 Encounter for screening for malignant neoplasm of prostate (principal); E11.9 Type 2 diabetes mellitus without complications; E78.00 Pure hypercholesterolemia, unspecified; Z76.89 Persons encountering health services in other specified circumstances | CPT/HCPCS: G0103 ==